=== PATIENT | female | born 1980 | race Caucasian/White ===

== ENCOUNTER 2025-10-14 17:03 | Emergency (ER) | payer MEDICAID ==
[~2025-10-14] VITALS: Ht 154.9 cm; Wt 81.4 kg
[2025-10-14 17:08] VITALS: TEMP 98.2
[2025-10-14] MEDS: SODIUM CHLORIDE 0.9% 1,000 ML IV ONE (18:06)
[2025-10-14] MEDS: KETOROLAC TROMETHAMINE 30 MG/ML VIAL IVP ONE (18:06)
[2025-10-14] MEDS: METOCLOPRAMIDE HCL 5 MG/ML 2 ML VIAL IVP ONE (18:07)
[2025-10-14 18:55] VITALS: BP 117/60; PULSE 91; RESP 18; O2SAT 100
[2025-10-14 22:07] LABS: APPEARANCE,URINE CLEAR (CLEAR); GLUCOSE, URINE (UA) NEGATIVE (NEGATIVE); LEUKOCYTE ESTERASE ,URINE NEGATIVE (NEGATIVE); NITRATE,URINE NEGATIVE (NEGATIVE); OCCULT BLOOD,URINE SMALL (NEGATIVE); SPECIFIC GRAVITIY, URINE 1.014 (1.003-1.030)
[2025-10-14 22:09] LABS: HCG,QUAL URINE NEGATIVE (NEGATIVE)
[2025-10-14 22:35] LABS: SQUAMOUS EPITHELIAL CELL,UR Rare /LPF (None Seen)
== END 2025-10-14 23:28 | disposition home or self-care (01) ==
LOC: EMS 17:03
DX: G43.909 Migraine, unspecified, not intractable, without status migrainosus (principal); J45.909 Unspecified asthma, uncomplicated; F12.90 Cannabis use, unspecified, uncomplicated; Z88.2 Allergy status to sulfonamides
CPT/HCPCS: 99285; 96374; 96375; 70450; 96361; 81001; 84703; J1885; J1200; J1630; J2765; J7030